=== PATIENT | female | born 1930 | race African-American/Black ===

== ENCOUNTER 2019-02-15 20:53 | Emergency (ER) | payer MEDICARE, MEDICAID ==
[2019-02-15] MEDS ORDERED: ONDANSETRON 4 MG TAB.RAPDIS PO ONE (22:17)
--- NOTE | 2019-02-15 22:21 | ER Document Report ---
ED Medical Screen (RME) - General Chief Complaint: Vomiting Stated Complaint: VOMITING Time Seen by Provider: 02/15/19 22:17 Notes: 88-year-old female chief complaint of pain in her mid upper abdomen, vomiting x4 today, she also states pain radiates up into her chest and into her back. She also reports feeling chills today. Reports a normal bowel movement. Past medical history of type 2 diabetes, hysterectomy, cholecystectomy, denies med ical history otherwise. TRAVEL OUTSIDE OF THE [place] IN LAST 30 DAYS: No Physical Exam - Vital signs Vitals: Temp Pulse Resp BP Pulse Ox 98.2 F 78 20 152/70 H 97 02/15/19 21:38 02/15/19 21:38 02/15/19 21:38 02/15/19 21:38 02/15/19 21:38 - Abdominal Tenderness: Tender - Mild generalized tenderness, otherwise unremarkable Course - Re-evaluation Re-evalutation: Patient holding an emesis bag. Medicating, work-up pending. Vital signs unremarkable. Does not appear to be in severe distress I have greeted and performed a rapid initial assessment of this patient. A comprehensive ED assessment and evaluation of the patient, analysis of test results and completion of the medical decision making process will be conducted by additional ED providers. - Vital Signs Vital signs: Temp Pulse Resp BP Pulse Ox 98.2 F 78 20 152/70 H 97 02/15/19 21:38 02/15/19 21:38 02/15/19 21:38 02/15/19 21:38 02/15/19 21:38
--- NOTE | 2019-02-15 22:55 | RADIOLOGY REPORT (SQ) ---
EXAM DESCRIPTION: XR CHEST 1 VIEW COMPLETED DATE/TME: 02/15/2019 22:18 CLINICAL HISTORY: 88 years Female, chest pain, vomiting COMPARISON: None. NUMBER OF VIEWS/TECHNIQUE: 1/AP FINDINGS: Adequate lung volume, clear parenchyma, normal cardiac silhouette, and intact bony thorax. Atherosclerotic vascular disease. Osteoarthritis. Rotator cuff calcific tendinitis. Right upper abdominal clips. IMPRESSION: No acute cardiopulmonary findings.
[2019-02-16 01:15] LABS: ABSOLUTE LYMPHOCYTES (AUTO) 0.5 10^3/uL (0.5-4.7); ABSOLUTE MONOCYTES (AUTO) 0.4 10^3/uL (0.1-1.4); BASOPHILS % (AUTO) 0.4 % (0-2); EOSINOPHILS % (AUTO) 0.1 % (0-6); HEMATOCRIT 41.8 % (36.0-47.0); HEMOGLOBIN 14.3 g/dL (12.0-15.5); LYMPHOCYTES % (AUTO) 5.5 % (13-45); MEAN CORPUSCULAR HEMOGLOBIN 30.1 pg (27.0-33.4); MEAN CORPUSCULAR HGB CONC 34.4 g/dL (32.0-36.0); MEAN CORPUSCULAR VOLUME 88 fl (80-97); MONOCYTES % (AUTO) 4.6 % (3-13); PLATELET COUNT 215 10^3/uL (150-450); RED BLOOD COUNT 4.77 10^6/uL (3.72-5.28); RED CELL DISTRIBUTION WIDTH 13.5 % (11.5-14.0); SEGMENTED NEUTROPHILS % (AUTO) 89.4 % (42-78); TOTAL CELLS COUNTED % (AUTO) 100 %
[2019-02-16 01:39] LABS: ALANINE AMINOTRANSFERASE 15 U/L (9-52); ALBUMIN 4.7 g/dL (3.5-5.0); ALKALINE PHOSPHATASE 69 U/L (38-126); ANION GAP 15 (5-19); ASPARTATE AMINO TRANSFERASE 22 U/L (14-36); BILIRUBIN,DIRECT 0.2 mg/dL (0.0-0.4); BILIRUBIN,TOTAL 0.4 mg/dL (0.2-1.3); BLOOD UREA NITROGEN 14 mg/dL (7-20); CALCIUM 10.6 mg/dL (8.4-10.2); CARBON DIOXIDE 28 mmol/L (22-30); CHLORIDE 99 mmol/L (98-107); GLUCOSE 230 mg/dL (75-110); LIPASE 134.8 U/L (23-300); SODIUM 141.5 mmol/L (137-145); TOTAL PROTEIN 7.5 g/dL (6.3-8.2)
[2019-02-16 02:42] LABS: APPEARANCE,URINE CLEAR; BILIRUBIN,URINE NEGATIVE (NEGATIVE); COLOR,URINE YELLOW; GLUCOSE, URINE >=500 mg/dL (NEGATIVE); KETONES,URINE 20 mg/dL (NEGATIVE); LEUKOCYTE ESTERASE,URINE NEGATIVE (NEGATIVE); NITRITE,URINE NEGATIVE (NEGATIVE); PROTEIN,URINE NEGATIVE (NEGATIVE); URINE SPECIFIC GRAVITY 1.013; UROBILINOGEN,URINE NEGATIVE mg/dL (<2.0)
[2019-02-16] MEDS ORDERED: ONDANSETRON HCL INJ/PF 4 MG/2 ML SDV IV ONE (03:07)
[2019-02-16] MEDS ORDERED: ONDANSETRON ODT 4 MG TAB (6 TAB/ER DISP) PO PRN (03:12)
--- NOTE | 2019-02-16 03:13 | ER Document Report ---
ED General - General Chief Complaint: Vomiting Stated Complaint: VOMITING Time Seen by Provider: 02/15/19 22:17 Primary Care Provider: MARIN SHARMA MD [Primary Care Provider] - Follow up as needed TRAVEL OUTSIDE OF THE [place] IN LAST 30 DAYS: No - HPI Notes: Patient is an 88-year-old female who presents to the emerge department for evaluation of nausea and vomiting, abdominal pain, with occasional radiation to her chest. It all started today. She is had 4 episodes of nonbloody, nonbilious emesis. She states her last bowel movement was yesterday morning, was totally normal. She denies any associated cough, dyspnea. States she is been taking her medications as prescribed. Still urinating. She states that her pain is "just sore". She states that the pain in her chest is reproduced with palpation, she thinks it may be "from her bra." No fevers but she has felt somewhat cold. - Related Data Allergies/Adverse Reactions: No Known Allergies Allergy (Unverified 02/15/19 22:22) Past Medical History - General Information source: Patient - Social History Smoking Status: Never Smoker Family History: Reviewed & Not Pertinent Patient has suicidal ideation: No Patient has homicidal ideation: No Endocrine Medical History: Reports: Hx Diabetes Mellitus Type 2 Renal/ Medical History: Denies: Hx Peritoneal Dialysis Past Surgical History: Reports: Hx Cholecystectomy, Hx Hysterectomy Review of Systems - Review of Systems Constitutional: See HPI EENT: No symptoms reported Cardiovascular: See HPI Gastrointestinal: See HPI Genitourinary: No symptoms reported Musculoskeletal: No symptoms reported Skin: No symptoms reported Neurological/Psychological: No symptoms reported Physical Exam - Vital signs Vitals: Temp Pulse Resp BP Pulse Ox 98.2 F 78 20 152/70 H 97 02/15/19 21:38 02/15/19 21:38 02/15/19 21:38 02/15/19 21:38 02/15/19 21:38 - Notes Notes: Patient is an 88-year-old female, appears younger than his stated age in no acute distress. Vital signs reviewed, please refer to chart. Head is normocephalic, atraumatic. Pupils equal round, reactive to light. Neck is supple without meningismus. Heart is regular rate and rhythm. Chest wall is tender to palpation. Lungs are clear to auscultation bilaterally. Abdomen is soft, nontender, normoactive bowel sounds throughout. Extremities without cyanosis, clubbing. Posterior calves are nontender. Peripheral pulses are equal. Skin is warm and dry. Patient is awake, alert, pleasantly confused. She moves all 4 extremities spontaneously. No gross facial asymmetry. Course - Re-evaluation Re-evalutation: 02/16/19 03:11 Patient presents to the emergency department for evaluation. She has some chest wall tenderness. Her exam does reveal some mild confusion, patient's son and niece are present, states they do believe she has "some dementia." Patient had EKG, laboratory investigations as ordered through triage. She was continued to feel nauseated, although she did not have any emesis. She was medicated here with oral Zofran and then IV Zofran. Laboratory investigations are largely unremarkable, the exception of some mild hyperglycemia. Chest x-ray showed no acute process. EKG showed no acute ST changes. Patient is feeling improved. She actually is an appointment with her primary care physician tomorrow morning at 10 AM. I will send her home with Alexsandra galvez and close follow-up. She is to return to the emergency department with worsening or new concerning symptoms of any sort. 02/16/19 03:12 - Vital Signs Vital signs: Temp Pulse Resp BP Pulse Ox 98.7 F 78 14 152/64 H 97 02/16/19 03:38 02/16/19 03:38 02/16/19 03:38 02/16/19 03:38 02/15/19 21:38 - Laboratory Result Diagrams: 02/16/19 01:02 02/16/19 01:02 Laboratory results interpreted by me: 02/16/19 02/16/19 02/16/19 01:02 01:02 02:20 Seg Neutrophils % 89.4 H Lymphocytes % 5.5 L Glucose 230 H Calcium 10.6 H Urine Glucose (UA) >=500 H Urine Ketones 20 H Urine Ascorbic Acid 40 H - Diagnostic Test Radiology reviewed: Reports reviewed Radiology results interpreted by me: 02/16/19 03:12 Chest X-Ray 02/15/19 22:18 IMPRESSION: No acute cardiopulmonary findings. - EKG Interpretation by Me Additional EKG results interpreted by me: 02/16/19 03:13 Sinus mechanism with a rate of 73 bpm. Normal axis and intervals, no acute ST changes concerning for ischemia or infarction. Discharge - Discharge Clinical Impression: Chest wall pain Abdominal pain Qualifiers: Abdominal location: upper abdomen, unspecified Qualified Code(s): R10.10 - Upper abdominal pain, unspecified Nausea and vomiting Qualifiers: Vomiting type: unspecified Vomiting Intractability: non-intractable Qualified Code(s): R11.2 - Nausea with vomiting, unspecified Condition: Good Disposition: HOME, SELF-CARE Instructions: Abdominal Pain ([facility]), Antinausea Medication ([facility]), Chest Wall Pain ([facility]) Additional Instructions: Stay hydrated with small, frequent sips of fluids. Zofran as needed for nausea. Follow-up with your doctor as scheduled. Return to the emergency department with worsening or new concerning symptoms of any sort. Referrals: MARIN SHARMA MD [Primary Care Provider] - Follow up as needed
[2019-02-16 03:40] VITALS: BP 152/64
--- NOTE | 2019-02-16 07:47 | EKG REPORT ---
SEVERITY:- ABNORMAL ECG - SINUS RHYTHM CONSIDER LEFT VENTRICULAR HYPERTROPHY : Confirmed by: Steven Moss MD 16-Feb-2019 07:47:04
== END 2019-02-16 03:38 | disposition home or self-care (01) ==
LOC: ER 20:53
DX: R07.89 Other chest pain (principal); R11.2 Nausea with vomiting, unspecified; R10.10 Upper abdominal pain, unspecified; E11.9 Type 2 diabetes mellitus without complications; Z90.49 Acquired absence of other specified parts of digestive tract; Z90.710 Acquired absence of both cervix and uterus
CPT/HCPCS: 93005; 99284; 96374; 36415; 87040; 83690; 85025; 80053; 81001; 84484; 71045; 93010; A9270 ×2; J2405; S0119

== ENCOUNTER → 2020-01-24 | Outpatient (CLI) | payer MEDICARE, MEDICAID ==
--- NOTE | 2020-01-24 14:46 | RADIOLOGY REPORT (SQ) ---
EXAM DESCRIPTION: LUMBAR SPINE COMPLETE IMAGES COMPLETED DATE/TIME: 01/24/2020 2:34 pm REASON FOR STUDY: CHRONIC LOW BACK PAIN M54.5 LOW BACK PAIN COMPARISON: None. NUMBER OF VIEWS: Five views including obliques. TECHNIQUE: AP, lateral, oblique, and sacral radiographic images acquired of the lumbar spine. LIMITATIONS: None. FINDINGS: MINERALIZATION: Normal. SEGMENTATION: Normal. No transitional anatomy. ALIGNMENT: There is grade 1 anterolisthesis of L4 on L5 and L5 on S1. VERTEBRAE: Maintained height. No fracture or worrisome bone lesion. DISCS: Multilevel disc space narrowing with osteophytes. POSTERIOR ELEMENTS: Pedicles and facets are intact. No pars defect or posterior arch defects. Facet arthropathy is present. HARDWARE: None in the spine. PARASPINAL SOFT TISSUES: Normal. PELVIS: Intact as visualized. No fractures or worrisome bone lesions. SI joints intact. OTHER: Numerous phleboliths in the pelvis. IMPRESSION: SPONDYLOSIS WITHOUT BONE LESION OR FRACTURE. TECHNICAL DOCUMENTATION: JOB ID: [id number] 2010 [employer]- All Rights Reserved Reading location - IP/workstation name: [email or web address]
== END ==
LOC: OD 13:24
PROVIDERS: ATTEND Family Medicine
DX: M54.5 Low back pain (principal)
CPT/HCPCS: 72110

== ENCOUNTER → 2020-07-06 | Outpatient (CLI) | payer MEDICARE, MEDICAID ==
--- NOTE | 2020-07-09 13:03 | WOMENS IMAGING REPORT ---
EXAM DESCRIPTION: 3D SCREENING MAMMO BILAT IMAGES COMPLETED DATE/TIME: 07/06/2020 10:16 am REASON FOR STUDY: Z12.31 ENCNTR SCREEN MAMMOGRAM FOR MALIGNANT NEOPLASM OF BREAST Z12.31 ENCNTR SCR EEN MAMMOGRAM FOR MALIGNANT NEOPLASM OF EMBER COMPARISON: No prior exams are available at this reading. EXAM PARAMETERS: Standard craniocaudal and mediolateral oblique views of each breast recorded using digital acquisition and breast tomosynthesis. Read with the assistance of CAD. .[facility] - R2 Behavioral Interventionist Version 9.2 LIMITATIONS: None. FINDINGS: RIGHT BREAST MASSES: Small mass lower mid breast, 7.6 cm from the nipple. CALCIFICATIONS: No new or suspicious calcifications. ARCHITECTURAL DISTORTION: None. ASYMMETRY: Small asymmetry in the upper breast, 8.5 cm from the nipple, best seen on the RMLO view. OTHER: No other significant findings. LEFT BREAST MASSES: No suspicious masses. CALCIFICATIONS: No new or suspicious calcifications. ARCHITECTURAL DISTORTION: None. ASYMMETRY: None noted. OTHER: No other significant findings. IMPRESSION: 1. Small mass Right breast. 2. Small asymmetry Right breast. 0 Incomplete: Needs Additional Imaging Evaluation and/or prior Mammograms for Comparison. BREAST DENSITY: b. There are scattered areas of fibroglandular density. BIRAD: ASSESSMENT: 0 Incomplete: Needs Additional Imaging Evaluation and/or prior Mammograms for C omparison. RECOMMENDATION: 1. Special view mammogram Right breast: spot compression and true lateral views. Ult rasound if needed. The patient will be contacted for additional imaging. COMMENT: The patient has been notified of the results by letter per [place] requirements. Additional no tification policies are in place for contacting patient with suspicious or incomplete findings. Quality ID #[id number]: The [employer] recommends an annual screening mammogram for women aged 40 years or over. This facility utilizes a reminder system to ensure that all patients receive reminder letters, and/or direct phone calls for appointments. This includes reminders for routine scr eening mammograms, diagnostic mammograms, or other Breast Imaging Interventions when appropriate. Th is patient will be placed in the appropriate reminder system. TECHNICAL DOCUMENTATION: FINDING NUMBER: (1) ASSESSMENT: (1) JOB ID: [id number] 2010 [employer]- All Rights Reserved Reading location - IP/workstation name: [email or web address]
== END ==
LOC: WI 09:53
PROVIDERS: ATTEND Family Medicine
DX: Z12.31 Encounter for screening mammogram for malignant neoplasm of breast (principal); N63.14 Unspecified lump in the right breast, lower inner quadrant
CPT/HCPCS: 77063; 77067